=== PATIENT | female | born 1940 | race Caucasian/White ===

== ENCOUNTER 2017-02-21 05:33 | Outpatient (CLI) | payer MEDICARE, OTHER ==
[~2017-02-21] VITALS: Ht 168.9 cm; Wt 103.4 kg
[2017-02-21] MEDS ORDERED: PROP40TA5 PO (10:15)
[2017-02-21] MEDS ORDERED: GABA600T2 PO (10:15)
[2017-02-21] MEDS ORDERED: ATOR40TA70 PO (10:15)
== END 2017-02-21 10:19 ==
LOC: PREOP 05:33
PROVIDERS: ATTEND Surgery
DX: Z01.818 Encounter for other preprocedural examination (principal); K58.9 Irritable bowel syndrome, unspecified

== ENCOUNTER 2017-02-25 06:53 | Day surgery (SDC) | payer MEDICARE, OTHER ==
[~2017-02-25] VITALS: Ht 168.9 cm; Wt 103.4 kg
[~2017-02-25 06:53] MED LIST: ATOR40TA70 PO; GABA600T2 PO; PROP40TA5 PO
[2017-02-25] MEDS ORDERED: PROPOFOL INJECTION 50 ML IV ONE (07:03)
[2017-02-25 07:10] VITALS: BP 173/82
[2017-02-25] MEDS ORDERED: NS IV 1000 ML 1,000 ML IV PRN (07:10)
[2017-02-25] MEDS ORDERED: NS IV 1000 ML 1,000 ML ONE (07:10)
[2017-02-25] MEDS ORDERED: OMG1KC PO (07:26)
[2017-02-25] MEDS ORDERED: MULT-868 PO (07:27)
[2017-02-25] MEDS ORDERED: MULT-974 PO (07:28)
[2017-02-25] MEDS ORDERED: GLUC-144 PO (07:28)
--- NOTE | 2017-02-25 08:27 | Progress Note-Post Operative ---
Post-Operative Progess Note Surgeon (s)/Mannequin Molder (s) Surgeon CARISA CLAIRE DO Mannequin Molder: na Pre-Operative Diagnosis screening history of IBS Post-Operative Diagnosis minimal sigmoid colitis Procedure & Operative Findings Date of Procedure 02/25/17 Procedure Preformed/Findings minimal sigmoid colitis Anesthesia Type per narrative writer Estimated Blood Loss Estimated blood loss (mL): none Specimens/Packing Specimens Removed sigmoid colon Packing: CARISA Ackerman DO February 25, 2017 8:27 am
--- NOTE | 2017-02-25 08:28 | Discharge Inst-Simple/Standard ---
Discharge Inst-Standard Patient Instructions/Follow Up Plan of Care/Instructions/FU: 2 weeks Dmitriy Activity as Tolerated: Yes Discharge Diet: Regular Diet CARISA CLAIRE DO February 25, 2017 8:28 am
[2017-02-25 08:45] VITALS: BP 128/73
[2017-02-25 09:10] VITALS: BP 154/79
[2017-02-25 09:15] VITALS: BP 154/79
--- NOTE | 2017-02-26 01:33 | OPERATIVE REPORT ---
DATE OF SERVICE: 02/25/2017 PREOPERATIVE DIAGNOSIS: Screening colonoscopy, history of irritable bowel syndrome. POSTOPERATIVE DIAGNOSIS: Minimal sigmoid colitis. PROCEDURE: Colonoscopy with cold biopsy of sigmoid colon. SURGEON: Carisa Izaguirre DO ANESTHESIA: Per COAL INSPECTOR. ESTIMATED BLOOD LOSS: None. COMPLICATIONS: None. INDICATIONS: The patient is a 76-year-old female due for colonoscopy. She understands the risks and benefits of procedure and wished to proceed with procedure. Consent was signed in the chart. PROCEDURE IN DETAIL: The patient was taken to the endoscopy suite, placed in left lateral recumbent position. Timeout was performed. Digital rectal exam was performed. There were no palpable polyps, masses or ulcerations. Scope was inserted in the rectum and advanced all the way to the cecum with minimal difficulty. Prep was adequate. Scope was then slowly retracted back. There are no polyps, masses or ulcerations within the cecum, ascending, transverse, descending colon. Within the sigmoid colon, there was a small amount of erythematous changes consistent with a low-grade sigmoid colitis and possibly even from the prep. Biopsy of this area was obtained. The scope was then continued to be slowly retracted back into the rectum. The scope was also retroflexed noting no other pathology. Scope was returned to its normal position slowly withdrawn until completely removed. RECOMMENDATIONS: The patient will follow up in the office in two weeks to go over pathology. If she has any problems prior to that, she should be reevaluated at that time. She will need repeat colonoscopy in 10 years unless family history of colon cancer which will be within 5 years or personal history of polyps which will be within 5 years. Job ID: [id number] DocumentID: [id number] Dictated Date: 02/25/2017 08:29:21 Truck Headlight Assembler Date: 02/25/2017 17:46:02 Dictated By: CARISA IZAGUIRRE DO
== END 2017-02-25 09:15 | disposition home or self-care (01) ==
LOC: ENDO 06:53
PROVIDERS: ATTEND Surgery
DX: Z12.11 Encounter for screening for malignant neoplasm of colon (principal); K52.9 Noninfective gastroenteritis and colitis, unspecified

== ENCOUNTER → 2017-07-08 | Outpatient (CLI) | payer MEDICARE, OTHER ==
[~2017-07-08] MED LIST changes: +GLUC-144 PO; +MULT-868 PO; +MULT-974 PO; +OMG1KC PO
== END ==
LOC: CARD 10:41
PROVIDERS: ATTEND Nurse Practitioner Family
DX: R00.2 Palpitations (principal)
CPT/HCPCS: 93306

== ENCOUNTER → 2017-07-29 | Outpatient (CLI) | payer MEDICARE, OTHER ==
--- NOTE | 2017-07-29 21:10 | Diagnostic Imaging Report ---
Bilateral screening mammogram 2D views with tomosynthesis. The current study was also evaluated with a Computer Aided Detection (CAD) system. INDICATION: Screening. No current complaints stated on the questionnaire. COMPARISON: 07/19/2016. FINDINGS: The breasts are composed of scattered fibroglandular densities. Occasional benign-appearing calcifications are seen. Allowing for technique and positional differences, no suspicious change is seen. IMPRESSION: No significant change. ACR BI-RADS Category 2: Benign findings. Result letter will be mailed to the patient. Note: At least 10% of breast cancer is not imaged by mammography. Dictated by: Dictated on workstation # [id number]
== END ==
LOC: RAD 09:31
PROVIDERS: ATTEND Family Medicine
DX: Z12.31 Encounter for screening mammogram for malignant neoplasm of breast (principal)
CPT/HCPCS: 77067

== ENCOUNTER → 2018-01-07 | Outpatient (CLI) | payer MEDICARE, OTHER ==
--- NOTE | 2018-01-07 13:27 | Diagnostic Imaging Report ---
INDICATION: Left leg numbness and tingling. TIME OF EXAM: 1:37 p.m. Right convexity lumbar scoliotic curvature is noted. There are postoperative changes of posterior instrument fusion with vertical stabilization rods and bipedicular screws extending from L2 through L4. The hardware appears intact without fracture or loosening. There is minimal anterolisthesis of L4 on L5. There appears to be significant degenerative disc disease at the L1-L2 level as well as moderate disc space narrowing at L4-L5 and L5-S1 levels compatible with degenerative disc disease. Decompression laminectomy at L2 through L4 is seen as well. IMPRESSION: Lumbar spondylosis and scoliosis with postsurgical changes of posterior instrumented fusion L2 through L5. No complicating feature is identified. Dictated by: Dictated on workstation # [id number]
== END ==
LOC: RAD 13:00
PROVIDERS: ATTEND Nurse Practitioner Family
DX: M47.816 Spondylosis without myelopathy or radiculopathy, lumbar region (principal); M41.86 Other forms of scoliosis, lumbar region; Z98.0 Intestinal bypass and anastomosis status
CPT/HCPCS: 72100

== ENCOUNTER → 2018-09-08 | Outpatient (CLI) | payer MEDICARE, OTHER ==
--- NOTE | 2018-09-08 13:21 | Diagnostic Imaging Report ---
Indication: Routine screening. Comparison is made prior mammogram from 07/29/2017 and 07/19/2016. 2-D and 3-D bilateral screening mammography was performed with CAD. Scattered fibroglandular densities are identified bilaterally. Benign calcifications are identified bilaterally. There is focal density in the retroareolar and slightly superior aspect of the left breast on MLO view. No corresponding density on the CC view is seen. This may represent summation but additional views are recommended. No other suspicious abnormality is seen. No malignant-appearing microcalcifications are identified. Axillae are unremarkable. Impression: BI-RADS 0 Left breast density. Additional views are recommended. ACR BI-RADS Category 0: Incomplete. (Needs additional imaging evaluation). Result letter will be mailed to the patient. Note: At least 10% of breast cancer is not imaged by mammography. Dictated by: Dictated on workstation # [id number]
== END ==
LOC: RAD 08:54
PROVIDERS: ATTEND Nurse Practitioner Family
DX: Z12.31 Encounter for screening mammogram for malignant neoplasm of breast (principal); R92.8 Other abnormal and inconclusive findings on diagnostic imaging of breast
CPT/HCPCS: 77067

== ENCOUNTER → 2018-09-16 | Outpatient (CLI) | payer MEDICARE, OTHER ==
--- NOTE | 2018-09-16 10:05 | Diagnostic Imaging Report ---
Indication: Left breast density. Patient presents for additional views. Correlation is made with recent screening study from 09/08/2018. Unilateral left 2-D and 3-D diagnostic mammography was performed including spot compression ML view and conventional 90 degree lateral view. Additional views failed to demonstrate a discrete mass. Area of density in the retroareolar upper left breast resolves and most likely represents superimposed tissue. No mass or suspicious calcifications are seen. Impression: BI-RADS category one Additional views fail to demonstrate a discrete mass. Patient may return to routine annual screening mammography. ACR BI-RADS Category 1: Negative. Result letter will be mailed to the patient. Note: At least 10% of breast cancer is not imaged by mammography. Dictated by: Dictated on workstation # [id number]
== END ==
LOC: RAD 08:51
PROVIDERS: ATTEND Nurse Practitioner Family
DX: R92.2 Inconclusive mammogram (principal)

== ENCOUNTER → 2019-11-03 | Outpatient (CLI) | payer MEDICARE, OTHER ==
[~2019-11-03] MED LIST changes: -GABA600T2 PO; +GBPN600T PO; -MULT-868 PO; +[UNRECOGNIZED DRUG - CODE] PO
--- NOTE | 2019-11-03 14:03 | Diagnostic Imaging Report ---
INDICATION: Routine screening. COMPARISON: 09/08/2018 and 07/29/2017. TECHNIQUE: 2D and 3D bilateral screening mammography was performed with CAD. FINDINGS: Scattered fibroglandular densities are identified bilaterally. There are scattered benign calcifications. No mass or malignant appearing microcalcifications are seen. The axillae are unremarkable. IMPRESSION: No mammographic features suspicious for malignancy are identified. ACR BI-RADS Category 2: Benign findings. Result letter will be mailed to the patient. Note: At least 10% of breast cancer is not imaged by mammography. Dictated by: Dictated on workstation # [id number]
== END ==
LOC: RAD 10:16
PROVIDERS: ATTEND Nurse Practitioner Family
DX: Z12.31 Encounter for screening mammogram for malignant neoplasm of breast (principal)
CPT/HCPCS: 77067

== ENCOUNTER → 2021-01-16 | Outpatient (CLI) | payer MEDICARE, OTHER ==
--- NOTE | 2021-01-16 12:03 | Diagnostic Imaging Report ---
INDICATION: Routine screening Comparison is made prior mammogram 11/03/2019 and 09/08/2018. 2-D and 3-D bilateral screening mammography was performed with CAD. Scattered fibroglandular densities are identified bilaterally. Occasional benign calcifications are noted bilaterally. No mass or malignant appearing microcalcifications are seen. Axillae are unremarkable. IMPRESSION: BI-RADS Category 2 No mammographic features suspicious for malignancy are identified. ACR BI-RADS Category 2: Benign findings. Result letter will be mailed to the patient. Note: At least 10% of breast cancer is not imaged by mammography. Dictated by: Dictated on workstation # [id number]
== END ==
LOC: RAD 09:21
PROVIDERS: ATTEND Family Medicine
DX: Z12.31 Encounter for screening mammogram for malignant neoplasm of breast (principal)
CPT/HCPCS: 77063; 77067

== ENCOUNTER → 2022-02-13 | Outpatient (CLI) | payer MEDICARE, OTHER ==
--- NOTE | 2022-02-13 13:28 | Diagnostic Imaging Report ---
INDICATION: Routine screening. COMPARISON: 01/16/2021 and 11/03/2019. TECHNIQUE: 2D and 3D bilateral screening mammography was performed with CAD. FINDINGS: Scattered fibroglandular densities are identified bilaterally. The parenchymal pattern is stable. No mass or malignant-appearing microcalcifications are seen. There are benign calcifications present. The axillae are unremarkable. IMPRESSION: No mammographic features suspicious for malignancy are identified. ACR BI-RADS Category 2: Benign findings. Result letter will be mailed to the patient. Note: At least 10% of breast cancer is not imaged by mammography. Dictated by: Dictated on workstation # [id number]
== END ==
LOC: RAD 09:14
PROVIDERS: ATTEND Family Medicine
DX: Z12.31 Encounter for screening mammogram for malignant neoplasm of breast (principal)
CPT/HCPCS: 77063; 77067

== ENCOUNTER → 2022-04-10 | Outpatient (CLI) | payer MEDICARE, OTHER ==
--- NOTE | 2022-04-10 09:38 | Diagnostic Imaging Report ---
PROCEDURE: US Renal Bilateral. TECHNIQUE: Multiple real-time grayscale images were obtained over the kidneys in various projections bilaterally. INDICATION: Chronic kidney disease. Right kidney measures 9.2 x 3.8 x 5.0 cm and the left kidney measures 8.4 x 4.6 x 4.0 cm. Cortical thickness and echogenicity is normal. No calculi are seen. There is some mild prominence of the right renal collecting system and right renal pelvis suggestive of mild hydronephrosis. Left kidney is unremarkable. Prevoid bladder volume is 118 mL. Post void bladder volume is 4 mL. Bilateral ureteral jets were visualized. IMPRESSION: Questionable mild right-sided hydronephrosis. Study is otherwise unremarkable. Dictated by: Dictated on workstation # [id number]
== END ==
LOC: RAD 09:15
PROVIDERS: ATTEND Internal Medicine Nephrology
DX: N18.31 Chronic kidney disease, stage 3a (principal); M53.80 Other specified dorsopathies, site unspecified; E55.9 Vitamin D deficiency, unspecified; D50.9 Iron deficiency anemia, unspecified; D63.1 Anemia in chronic kidney disease; Z79.1 Long term (current) use of non-steroidal anti-inflammatories (NSAID); Z79.899 Other long term (current) drug therapy
CPT/HCPCS: 76770

== ENCOUNTER → 2023-04-08 | Outpatient (CLI) | payer MEDICARE, OTHER ==
--- NOTE | 2023-04-08 15:30 | Diagnostic Imaging Report ---
INDICATION: Routine screening. COMPARISON: 02/13/2022 and 01/16/2021. TECHNIQUE: 2D and 3D bilateral screening mammography was performed with CAD. FINDINGS: Scattered fibroglandular densities are identified bilaterally. The parenchymal pattern is stable. There are scattered benign calcifications. No mass or malignant-appearing microcalcifications are seen. The axillae are unremarkable. IMPRESSION: No mammographic features suspicious for malignancy are identified. ACR BI-RADS Category 2: Benign findings. Result letter will be mailed to the patient. Note: At least 10% of breast cancer is not imaged by mammography. Dictated by: Dictated on workstation # [id number]
== END ==
LOC: RAD 08:27
PROVIDERS: ATTEND Family Medicine
DX: Z12.31 Encounter for screening mammogram for malignant neoplasm of breast (principal)
CPT/HCPCS: 77063; 77067